=== PATIENT | female | born 1985 | race Caucasian/White ===

== ENCOUNTER 2023-06-02 12:46 | Emergency (ER) | payer OTHER, SELFPAY ==
[2023-06-02 13:03] VITALS: BP 138/91; PULSE 87; RESP 19; TEMP 36.4; O2SAT 100; BMI 21.9
--- NOTE | 2023-06-02 13:09 | ECG_ITS ---
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
--- NOTE | 2023-06-02 13:13 | ED.GENADUL1 ---
HPI - General Adult General Chief complaint: Altered Mental Status Stated complaint: CONFUSION Time Seen by Provider: 06/02/23 13:01 Source: patient Mode of arrival: walk-in Limitations: no limitations History of Present Illness HPI narrative: Patient is a 37-year-old female who is presenting to the Emergency Room with chief complaint of mild confusion, very flat affect, extremely soft-spoken, somewhat disoriented. Patient says that she can't to the parking lot last night and her car, and the father of her 3 children's mother and another person who she does not know who it was cane to the Emergency Room with her and different cars and sat in the parking lot last evening. Patient was in a come into the Emergency Room for help last night, has decided not to. Patient says that she sat in the parking lot all night and through the day today. It was noted by registration that she came in once to go the bathroom, she came in again to get water. Patient seemed cconfused and altered registration. Patient presenting, gave a name and birthday but had no license or identification. It is extremely difficult to obtain history from this patient, she is extremely soft-spoken, flat affect,Poor eye contact. She is not suicidal or homicidal. Patient says she has 3 children. Patient says that she is currently homeless living out of her car. Patient cannot tell me when she became almost. Patient says there is a house that she has stated before with her children, the patient cannot tell me who is in the house right now or if things are good in her life who should be living at the house with her. Patient says the house was brought for her. Patient states she has a history anxiety, depression and bipolar. Patient takes no medications daily. Patient stated months ago she decided to stop her medication. Patient has mild headache, does not want anything for headache at this time. Patient states she's been eating and drinking less recently. Patient has no chest pain or shortness of breath. No bowel pain nausea vomiting. No urinary complaints. Patient still has her uterus and ovaries, she does not know her tubes are tied or not, she does not think she is . Patient denies any type of sexual, physical, or mental abuse. When I initially asked patient if she had any sexual abuse, she told me I don't think so I then asked her how she does not know if she had any sexual abuse or not, and then patient told me no she has not. Patient denies alcohol use, does admit to smoking cigarettes. Patient states that she has illicit drugs in the past, she has not use any illicit drugs a long time but patient cannot quantify what a long-time means: weeks months or years, she cannot give me a definitive answer. Patient has no bowel or bladder changes. Patient has been admitted for a couple days to [facility] in the past for bipolar. Patient did finally tell me that she said, and needs help; but will not give me a certain direction on how I can help her. Patient was told that she may be discharged versus getting admitted to the hospital for mental health and she is not opposed to that at this time. Initially I ordered an and acute confusion/overdose/toxic/mental status workup. Patient appears to be very flat affect, possible major depression and bipolar. Patient is not toxic. Patient denies several times trauma. I believe patient is more here for mental health help. Patient did come into the hospital because she wanted blood work checked to make sure nothing is wrong with her. There is no order for blood work. Patient's PCP is Dr. Escamilla but has not seen him for years. Patient is agreeing to medical clearance and speaking to [facility] for further evaluation if she qualifies for admission or not . All systems are negative except as noted/marked. All systems reviewed and otherwise negative. . Nurses note and vital signs reviewed and patient is not hypoxic. General: The patient appears well and in no apparent distress. Patient is resting comfortably on cart. Patient is not toxic, lethargic, or listless Skin: Warm, dry, no pallor noted. There is no rash noted. No petechiae, purpura. Head: Normocephalic, atraumatic Eye: Normal conjunctiva, no drainage, EOMI. PERRL Ears, Nose, Mouth, and Throat: oral mucosa is moist. Nares patent. Mouth without vesicles. Cardiovascular: Regular Rate and Rhythm, no murmur, gallop, rub Respiratory: Patient is in no distress, no accessory muscle use, lungs are clear to auscultation, no wheezing, rales or rhonchi Back: non-tender, no CVA tenderness bilaterally to percussion. No CT LS midline pain GI: soft, no tenderness to palpation, no masses appreciated. No rebound, guarding, or rigidity noted. No flank pain bilateral, No distention Musculoskeletal: Patient has full range of motion of all of the extremities, no motor, sensory, or focal neurological deficits Neurological: A&O x3, normal speech Psychiatric: Cooperative Related Data Allergies Allergy/AdvReac Type Severity Reaction Status Date / Time No Known Drug Allergies [facility] 06/02/23 13:03 [facility] Social History Smoking status: Current every day smoker Exam Constitutional Vital Signs, click to edit/add: Last Vital Signs Temp 97.6 F 06/02/23 13:03 Pulse 77 06/02/23 15:57 Resp 19 06/02/23 13:03 BP 113/68 06/02/23 15:57 Pulse Ox 100 06/02/23 15:57 Course Vital Signs Vital signs: Vital Signs Temperature 97.6 F 06/02/23 13:03 Pulse Rate 87 06/02/23 13:03 Respiratory Rate 19 06/02/23 13:03 Blood Pressure 138/91 06/02/23 13:03 Pulse Oximetry 100 06/02/23 13:03 Temperature 97.6 F 06/02/23 13:03 Pulse Rate 77 06/02/23 15:57 Respiratory Rate 19 06/02/23 13:03 Blood Pressure 113/68 06/02/23 15:57 Pulse Oximetry 100 06/02/23 15:57 Medical Decision Making [facility] Narrative Medical decision making narrative: EKG interpretation. Normal sinus rhythm at 90 beats a minute. Normal axis deviation. No acute ST elevation, no acute ectopy. QTC of 393. 1430 Patient has been medically cleared For evaluation by [facility]'s counselors. 1530 there was a delay in speaking to Hotline or target worker. The phones were busy, and the phones kept Redirecting us to a nurse on one [facility] nursing floor. 1 [facility] has no beds available we are told several times from the nurse who is working on that floor. We're finally able to understand that the phone lines were busy, and to keep calling the P counselors And eventually will be able to talk to a person who can help evaluate this patient. 1600 Lia administrative secretary had spoken to this 16-year-old son, Javy. Son had mentioned that he is not speaking to his mother, that she has a history of doing meth daily. Patient also has had up-and-down mood swings at home. Son made the comment that within son was arguing with mother again, mother had made the comment that maybe I should just go away and never come back again should just leave and never come back. 1700 [place] administrative secretary had spoken to mother, Fabiana. Phone number is [phone]. She had mentioned the patient is bipolar. Patient also suffers from severe paranoia. Mother states the patient has not been taking her psychiatric medicine for at least 2 years. Patient has been admitted to [address] 3-4 days several months ago. Mother has disowned this patient as well, secondary to her illicit drug use and The patient not helping and taking care of her mental health disease seriously. 1800 Cassie from [facility] came to see and evalutate the patient in person. 1830 patient did was walking into the ambulance doors, patient was redirected in 3-4 minutes back into her room. Patient went to go outside and smoke a cigarette. Patient has no cigarettes. Patient also wanted to leave did not want to wait any further. Patient becoming more agitated. Patient was given Ativan and nicotine patch. 1899 Dr Mckenzie is taking over patients Care, final disposition and transferred to mental health facility. Patient has been pink slipped by myself secondary to inability for her to care of herself and comments that she should maybe go away and never come back. Patient has significant medical health disease, significant medical noncompliance, and treating disease with crystal meth. Patient is amphetamines and crystal meth in her urine. Critical care time 45 minutes exclusive from separate billable procedures that were performed. The following was considered in the determination of critical care but not limited to the level of medical decision making, intensive cardiac and/or respiratory monitoring, frequent vital sign monitoring, evaluation of laboratory studies, evaluation of radiographic studies, oxygen monitoring, and constant monitoring and speaking to family at bedside Lab Data Lab results reviewed: Yes I reviewed the patient's lab results Labs: Lab Results 06/02/23 06/02/23 06/02/23 Range/Units 13:00 13:08 13:14 WBC 8.1 (4.0-11.0) 10^3/uL RBC 4.52 (4.20-5.40) 10^6/uL Hgb 13.1 (12.0-16.0) g/dL Hct 39.6 (36.0-48.0) % MCV 87.6 (81.0-99.0) fL MCH 29.0 (26.7-34.0) pg MCHC 33.1 (29.9-35.2) g/dL RDW 13.3 (11.0-15.0) % Plt Count 379 (150-450) 10^3/uL MPV 8.3 L (9.5-13.5) fL Neut % (Auto) 64.2 (43.0-75.0) % Lymph % (Auto) 24.7 (20.5-60.0) % Rice % (Auto) 7.4 (1.7-12.0) % Eos % (Auto) 2.5 (0.9-7.0) % Baso % (Auto) 1.0 (0.2-2.0) % Neut # (Auto) 5.2 (1.4-6.5) 10^3/uL Lymph # (Auto) 2.0 (1.2-3.8) 10^3/uL Rice # (Auto) 0.6 (0.3-0.8) 10^3/uL Eos # (Auto) 0.2 (0.0-0.7) 10^3/uL Baso # (Auto) 0.1 (0.0-0.1) 10^3/uL Abs Immat Gran (auto) 0.02 (0.00-0.03) 10^3/uL Imm/Tot Granulo (auto) 0.2 (0.0-0.5) % Sodium 142 (136-145) mmol/L Potassium 3.5 (3.5-5.1) mmol/L Chloride 105 (98-107) mmol/L Carbon Dioxide 28.7 (21.0-32.0) mmol/L Anion Gap 11.8 BUN 4.0 L (7.0-18.0) mg/dL Creatinine 0.85 (0.55-1.02) mg/dL Est GFR ( Amer) >60 (>=60) Est GFR (Non-Af Amer) >60 (>=60) BUN/Creatinine Ratio 4.7 Glucose 109 H (74-106) mg/dL Lactate 1.6 (0.4-2.0) mmol/L Calcium 10.3 H (8.5-10.1) mg/dL Total Bilirubin 0.5 (0.2-1.0) mg/dL AST 11 L (15-37) U/L ALT 25 (14-59) U/L Alkaline Phosphatase 64 (46-116) U/L Ammonia 13 (11-32) umol/L Troponin I High Sens <4.0 L (4.0-51.3) pg/mL Total Protein 6.9 (6.4-8.2) g/dL Albumin 3.9 (3.4-5.0) g/dL Globulin 3.0 g/dL Albumin/Globulin Ratio 1.3 TSH 0.545 (0.358-3.740) uIU/mL Serum HCG, Qual Negative (NEGATIVE) Urine Color Yellow (YELLOW) Urine Clarity Clear (CLEAR) Urine pH 6.0 (5.0-9.0) Ur Specific [place] 1.020 (1.005-1.025) Urine Protein Negative (NEG/TRACE) mg/dL Urine Glucose (UA) Negative (NEGATIVE) mg/dL Urine Ketones Negative (NEGATIVE) mg/dL Urine Occult Blood Large A (NEGATIVE) Urine Nitrite Negative (NEGATIVE) Urine Bilirubin Negative (NEGATIVE) Urine Urobilinogen 0.2 (0.2-1.0) EU/dL Ur Leukocyte Esterase Trace A (NEGATIVE) Urine RBC 2-5 A (0-2) #/HPF Urine WBC 5-10 A (NONE SEEN) #/HPF Ur Squamous Epith Cells Moderate A (NONE/RARE) #/LPF Urine Crystals Seen A (None Seen) #/HPF Calcium Oxalate Crystal Rare Urine Bacteria Moderate A (NONE SEEN) #/HPF Urine Mucus None seen (NONE SEEN) Salicylates <2.8 (<=19.9) mg/dL Urine Opiates Screen Negative (NEGATIVE) Ur Buprenorphine Scrn Negative (NEGATIVE) Ur Oxycodone Screen Negative (NEGATIVE) Urine Methadone Screen Negative (NEGATIVE) Ur Propoxyphene Screen Negative (NEGATIVE) Acetaminophen <2.0 L (10.0-30.0) ug/mL Ur Barbiturates Screen Negative (NEGATIVE) U Tricyclic Antidepress Negative (NEGATIVE) Ur Phencyclidine Scrn Negative (NEGATIVE) Ur Amphetamines Screen Positive A (NEGATIVE) U Methamphetamines Scrn Positive A (NEGATIVE) U Benzodiazepines Scrn Negative (NEGATIVE) Urine Cocaine Screen Negative (NEGATIVE) U Cannabinoids Screen Negative (NEGATIVE) Ethanol Quant <3 mg/dL POC Glucose 118 H (74-106) mg/dL Discharge Plan Discharge Patient Disposition: Still a Patient
[2023-06-02 13:20] LABS: Basophils Absolute Auto 0.1 10^3/uL (0.0-0.1); Eosinophils Absolute Auto 0.2 10^3/uL (0.0-0.7); Eosinophils Percent Auto 2.5 % (0.9-7.0); Hematocrit 39.6 % (36.0-48.0); Hemoglobin 13.1 g/dL (12.0-16.0); Immature Granulocytes Abs Auto 0.02 10^3/uL (0.00-0.03); Immature Granulocytes Pct Auto 0.2 % (0.0-0.5); Lymphocytes Percent Auto 24.7 % (20.5-60.0); Mean Corpuscular HGB Conc 33.1 g/dL (29.9-35.2); Mean Corpuscular Volume 87.6 fL (81.0-99.0); Mean Platelet Volume 8.3 fL (9.5-13.5); Monocytes Absolute Auto 0.6 10^3/uL (0.3-0.8); Monocytes Percent Auto 7.4 % (1.7-12.0); Neutrophils Absolute Auto 5.2 10^3/uL (1.4-6.5); Neutrophils Percent Auto 64.2 % (43.0-75.0); Platelet Count 379 10^3/uL (150-450); Red Blood Count 4.52 10^6/uL (4.20-5.40); Red Cell Distribution Width 13.3 % (11.0-15.0); White Blood Count 8.1 10^3/uL (4.0-11.0)
[2023-06-02 13:20] LABS: Glucometer 118 mg/dL (74-106)
--- NOTE | 2023-06-02 13:23 | PC.NURSE ---
DR AARON IN WITH PATIENT AT THIS TIME PT HAS HO ANXIETY AND BIPOLAR AND HAS STOPPED MEDS STATES SHE HAS BEEN SITTING IN PARKING LOT SITTING IN CAR ALL NIGHT WAITING TO BE SEEN BUT STATES SHE WAS NOT SURE WHY SHE CAME PT DENIES HOMICIDAL OR SUICIDAL IDEATIONS AT THIS TIME PT STATES THAT SHE IS HEART BROKEN DUE TO ISSUES AND CHILDREN ISSUES
[2023-06-02 13:35] LABS: Salicylate <2.8 mg/dL (<=19.9)
[2023-06-02 13:38] LABS: Ammonia 13 umol/L (11-32)
[2023-06-02 13:39] LABS: HCG Qualitative NEGATIVE (NEGATIVE)
[2023-06-02 13:45] LABS: Alanine Aminotransferase 25 U/L (14-59); Albumin Globulin Ratio 1.3; Albumin Level 3.9 g/dL (3.4-5.0); Alkaline Phosphatase 64 U/L (46-116); Anion Gap 11.8; Aspartate Amino Transferase 11 U/L (15-37); BUN Creatinine Ratio 4.7; Bilirubin Total 0.5 mg/dL (0.2-1.0); Calcium 10.3 mg/dL (8.5-10.1); Carbon Dioxide 28.7 mmol/L (21.0-32.0); Chloride 105 mmol/L (98-107); Estimated GFR (African America >60 (>=60); Estimated GFR (Non-African Ame >60 (>=60); Glucose 109 mg/dL (74-106); Potassium 3.5 mmol/L (3.5-5.1); Sodium 142 mmol/L (136-145); Total Protein 6.9 g/dL (6.4-8.2)
[2023-06-02] MEDS: 0.9 % SODIUM CHLORIDE 1,000 ML 1000 ML IV (13:45)
[2023-06-02 13:47] LABS: Bilirubin Urine NEGATIVE (NEGATIVE); Blood Urine LARGE (NEGATIVE); Clarity Urine CLEAR (CLEAR); Color Urine YELLOW (YELLOW); Glucose Urine UA NEGATIVE (NEGATIVE); Ketones Urine NEGATIVE (NEGATIVE); Leukocyte Esterase Urine TRACE (NEGATIVE); Nitrite Urine NEGATIVE (NEGATIVE); Protein Urine NEGATIVE (NEG/TRACE); Urobilinogen Urine 0.2 EU/dL (0.2-1.0)
[2023-06-02 13:51] LABS: Thyroid Stimulating Hormone 0.545 uIU/mL (0.358-3.740); Troponin I High Sensitivity <4.0 pg/mL (4.0-51.3)
[2023-06-02 13:55] LABS: Acetaminophen <2.0 ug/mL (10.0-30.0); Ethanol <3 mg/dL
[2023-06-02 13:58] LABS: Lactate/Lactic Acid 1.6 mmol/L (0.4-2.0)
[2023-06-02 14:00] LABS: Cannabinoid Screen Urine NEGATIVE (NEGATIVE); Cocaine Screen Urine NEGATIVE (NEGATIVE); Methamphetamines Screen Urine POSITIVE (NEGATIVE); Opiate Screen Urine NEGATIVE (NEGATIVE); Phencyclidine Screen Urine NEGATIVE (NEGATIVE)
[2023-06-02 14:01] LABS: Amphetamine Screen Urine POSITIVE (NEGATIVE); Barbiturates Screen Urine NEGATIVE (NEGATIVE); Benzodiazepines Screen Urine NEGATIVE (NEGATIVE); Buprenorphine Screen Urine NEGATIVE (NEGATIVE); Methadone Screen Urine NEGATIVE (NEGATIVE); Oxycodone Screen Urine NEGATIVE (NEGATIVE); Tricyclic Antidepressant Urine NEGATIVE (NEGATIVE)
[2023-06-02 14:05] LABS: Bacteria Urine MODERATE #/HPF (NONE SEEN)
[2023-06-02 14:08] LABS: Mucus Urine NONE SEEN (NONE SEEN)
[2023-06-02 14:09] LABS: Crystals Seen? Seen #/HPF (None Seen); Squamous Epithelial Cell Urine MODERATE #/LPF (NONE/RARE)
[2023-06-02 14:10] LABS: Calcium Oxalate Crystals Urine RARE
[2023-06-02 15:57] VITALS: BP 113/68; PULSE 77; O2SAT 100
--- NOTE | 2023-06-02 16:11 | PC.NURSE ---
p attempted to talk to pt at this time. pt became confused during phone call and was unsure who she was talking to and hung up on mhp. this nurse spoke to [facility] and dr. david is going to pink slip patient and [facility] is going to start making calls to place pt at a facility. pt mother called and spoke to secretary office clerk, states she didn't want to speak to patient, states patient was at [address] a couple months ago. pt is on psych meds but hasn'tt taken them in 2 years. hx of bipolar disorder.
--- NOTE | 2023-06-02 17:01 | PC.NURSE ---
rogers, ryan speaking to patient at this time
--- NOTE | 2023-06-02 17:36 | PC.NURSE ---
pt stopped speaking to ryan and handed phone off to a nurse. this nurse spoke to ryna on phone and she is heading in to speak to pt in person
--- NOTE | 2023-06-02 18:12 | PC.NURSE ---
ryan here at this time and ready to speak to pt. pt states that she is confused why all these people want to talk to her and she doesn't want to talk to anyone because everyone she talks to never cares and doesn't help her. pt states she would like to smoke a cigarette before speaking to anyone. physician notified and is going to order a nicotine patch. ryan in room now speaking to pt.
[2023-06-02] MEDS: LORAZEPAM 1 MG TABLET PO (18:38)
--- NOTE | 2023-06-02 19:15 | PC.NURSE ---
pt is attempting to flee hospital. pt states she wants to smoke a cigarette and shes going to and keep leaving her room and pacing the halls. security called and standing by pt room. probation supervisor called and sitter coming to bedside. attempted to speak to pt explain to pt that she needs to change into scrubs, pt refusing and states she wants to speak to ryan first. ryan in room speaking to pt. nurse in room and pt refusing to change still.
[2023-06-02 21:52] VITALS: BP 100/81; PULSE 60; RESP 18; O2SAT 99
== END 2023-06-02 23:30 ==
PROVIDERS: Emergency Medicine; Emergency Provider Internal Medicine
DX: R45.851 Suicidal ideations (principal); F32.A Depression, unspecified; F17.210 Nicotine dependence, cigarettes, uncomplicated
CPT/HCPCS: 36415; 80053; 80179; 80307; 80320; 80329; 81001; 82140; 83605; 84443; 84484; 84703; 85025; 93005; 99285